=== PATIENT | female | born 1945 | race Caucasian/White ===

== ENCOUNTER 2018-07-24 12:49 | Emergency (ER) | payer OTHER, SELFPAY ==
[2018-07-24] VITALS (20 sets, daily range): BP systolic 96–162; BP diastolic 51–84; PULSE 79–107; RESP 12–28; O2SAT 90–100
--- NOTE | 2018-07-24 12:40 | DI.CT_ITS ---
SYMPTOM/DIAGNOSIS: STROKE NONCONTRAST HEAD CT: A noncontrast cranial CT was performed. There is high density material consistent with acute hemorrhage in the left parietal lobe with a rounded/ovoid collection measuring roughly 4.5 by 2.6 cm. in diameter. There is associated subarachnoid hemorrhage. There is associated intraventricular hemorrhage in the right lateral ventricle and in the third ventricle. There appears to be midline shift. This is difficult to quantify because of patient motion and positioning but may be up to 1 cm. Inferior portions of the brain are non visualized due to motion artifact. Note is also made of hemorrhage in the region of the basal ganglia on the left measuring up to about 2.5 cm. in diameter. CONCLUSION: Acute left intracranial hemorrhage as described above with intraparenchymal, intraventricular and subarachnoid components as described.
--- NOTE | 2018-07-24 13:25 | DI.RAD_ITS ---
SYMPTOM/DIAGNOSIS: POST INTUBATION PORTABLE AP CHEST at 1410 hours: An endotracheal tube is in position with the tip approximately 3.5 cm. above the mira. There is an NG tube, the tip of which overlies the gastric fundus. There may be left lower lobe intrapulmonary infiltrate, question aspiration. Appropriate follow up studies requested.
[2018-07-24] MEDS: niCARdipine 25 MG in Normal Saline 240 ML 50 MG IV (13:58)
--- NOTE | 2018-07-24 13:58 | W.ED.GENAD ---
Discharge Plan Disposition Patient Disposition: [facility] Condition: Poor Discharge Details Chief Complaint: CVA/TIA Clinical Impression: Intracranial hemorrhage, Aspiration pneumonia, Acute respiratory failure Primary Care Provider: None,None ED Provider: Lars Torres Discharge Data Discharge Date/Time-TO BE ENTERED AT DEPARTURE: 07/24/18 15:10 Medical Decision Making This is a 73-year-old female with no past medical history who takes daily vitamins, occasional supplements, and a daily aspirin. She presents with her and EMS for evaluation of stroke. 30-40 minutes prior to arrival states that they were at a at their muslim, he went to go find his whom he found in the lower basement, walking around and slightly confused. EMS was contacted, glucose was noted to be normal, and she was transported immediately to the ER. Initial assessment demonstrated notable right-sided deficits, expressive aphasia, confusion, but a very stable blood pressure at 130. Patient was immediately sent to CT after abbreviated assessment, massive bleed was identified while the skin was taking place. Upon return to the ED moments later the patient's mental status was a notable decline, and the decision was made to intubate for airway protection. It was at this time that the patient's blood pressure significantly shot up, and acute medical management was started as follows: Concern for stroke noted on initial exam, immediately sent to CT, there is a combination of an intraparenchymal, intraventricular, and subarachnoid hemorrhage and bleed noted with a 1 cm midline shift. Bleed is located on the right, shift to the left of 1cm. Patient's blood pressure managed immediately with nicardipine titrating for systolic less than 160, she was intubated for airway protection using 100 of rocuronium and 20 of etomidate, started on 2 g of Keppra, 250 cc bolus of hypertonic saline for concern of herniation secondary to acutely worsening mental status, and notable midline shift, propofol for sedation. Chest x-ray results show concern for aspiration pneumonia, Zosyn added. 3 peripheral lines were placed, an additional triple-lumen was placed in the left groin, an arterial line was placed in the right wrist. On direct mail clerk arrival it was brought to our attention that they are not able to transport with nicardipine or Keppra. Out of concern for the patient, and well-being for the patient, a nurse nitroglycerin nitrator operator batch volunteered to travel down with the paramedics to manage the drips and medications. This was discussed with Dr. Peres prior to transfer he agrees on the need, and has given permission and allowence for this to happen. Patient will be transferred to [facility] and be seen and assessed in the ED under Dr. Greene from neurosurgery and Dr. Batres from the ED. Of note there was a notable delay in the callback from [facility] as they did not receive her initial faxed facesheet after we made the first call contacting them requesting consult immediate transfer, however they did not call us to tell us that this was the case. When we had not heard back after 30 minutes, we contacted them again which point they told us that they had not received the face sheet, and we asked for immediate consultation with neurosurgery for immediate transfer in spite of the lack of images and the fourth patient information. Patient was immediately refaxed, and shortly thereafter we are put in contact with neurosurgery, agreed with the need for immediate transfer. No additional recommendations aside for our current medical management. Upon my evaluation, this patient had a high probability of imminent or life-threatening deterioration, which required my direct attention, intervention, and personal management. I have personally provided 45 minutes of critical care time exclusive of time spent on separately billable procedures. Time includes review of laboratory data, radiology results, discussion with consultants, and monitoring for potential decompensation. Interventions were performed as documented above. Procedure: Endotracheal Intubation Indication: Respiratory Distress A time-out was completed verifying correct patient, procedure, site, positioning, and special equipment if applicable. The patient was placed a 45 degree angle with the head of the bed elevated. Sedation was obtained using Etomidate 20mg and paralysis was obtained using Rocuronium 100mg. The patient was easily ventilated using an ambu bag. The MAC 3 BLADE was used and inserted into the oropharynx at which time there was a Grade 1 view of the vocal cords. A 7.5-ivorian endotracheal tube was inserted and visualized going through the vocal cords. The stylette was removed. Colorimetric change was visualized on the CO2 meter. Breath sounds were heard in both lung mckeon equally. The endotracheal tube was placed at 21 cm, measured at the teeth. A chest x-ray was ordered to assess for pneumothorax and verify endotrachealtube placement. No pneumothorax was seen and tube was in good position. The patient tolerated the procedure well and there were no complications. Procedure: Left femoral Central Venous Catheter Indication: Hemodynamic monitoring/Intravenous access PROCEDURE SUMMARY: A time-out was performed. The patient?s groin region was prepped and draped in sterile fashion using chlorhexidine scrub. Anesthesia was achieved with 1% lidocaine. The femoral vein was accessed under ultrasound guidance using a finder needle.Venous blood was withdrawn. A guidewire was advanced through the needle. A small incision was made with a 10 blade scalpel and the dilator was advanced over the guidewire until appropriate dilation was obtained. The dilator was removed and a triple lumen catheter was advanced over the guidewire and secured into place with 2 simple interrupted sutures. At time of procedure completion, all ports aspirated and flushed properly. ESTIMATED BLOOD LOSS: 5ml?s The patient tolerated the procedure well there were no complications. HPI General Date/Time Provider Initiated Documentation: 07/24/18 12:56. HPI Narrative: This is a 73-year-old female with no significant past medical history who takes multivitamins and a daily aspirin who presents today for evaluation of stroke. 30 minutes prior to arrival patient was found slightly confused wandering downstairs in the basement of her muslim. Family noticed significant right-sided facial droop, right-sided weakness confusion, expressive aphasia. EMS was immediately called and the patient was brought to the ER for further evaluation. Accu-Chek demonstrated normal glucose levels. Patient has no complaints secondary to her altered mental status. No history of intracranial bleed, recent falls or trauma, or other complaints. No other previous pertinent medical history. Patient is full code. General Stated Complaint: CVA/TIA JACQUELINE: 2 Review of Systems Review of Systems Unobtainable due to mental condition Exam Narrative Exam Narrative: 1.Const: Well-nourished, Well-developed, appearing stated age 2.Eyes: PERRL, no conjunctival injection. Patient unable to follow visual cues, she does not look in multiple directions, there does not appear to be any E esotropia or exotropia 3.ENT: Atraumatic external nose and ears. Moist MM. Neck: Symmetric, trachea midline, No thyromegaly. Face is asymmetric there is a component of bilateral facial droop, over there appears to be slightly more left facial droop, tongue deviates to the right 4.CVS: +S1/S2, No murmurs or gallops. Peripheral pulses 2+ and equal in all extremities. Brisk capillary refill in all extremities. 5.RESP: Unlabored respiratory effort. Clear to auscultation bilaterally. No wheezes rales or rhonchi 6.GI: Soft, Nontender/Nondistended, No hepatosplenomegaly. No guarding or rebound. 7.MSK: Normocephalic/Atraumatic, Extremities w/o deformity or ttp No cyanosis or clubbing, notable right-sided weakness, 0 strength of the upper and lower right extremity. 5 out of 5 strength in left extremity, normal designer architect strength on the left. No pronator drift, or other abnormality for the left. Insensate to the right upper and lower extremity. 8.Skin: Warm, Dry. No rashes or lesions. 9.Neuro: Patient demonstrates notable expressive aphasia, she is unable to follow all commands. She has notable weakness on the right upper and lower extremity with 0 strength. Notable neglect, as well as right side being insensate. Right tongue deviation, bilateral facial droop, slightly worse on the left. 10.Psych: (AAO) x0 Course Vital Signs Respiratory Rate 12 07/24/18 13:30 Pulse Oximetry 100 07/24/18 13:30 Temperature Source Skin 07/24/18 12:58 Pulse 100 H 07/24/18 13:48 Respiratory Rate 14 07/24/18 13:48 Blood Pressure 155/79 H 07/24/18 13:48 Pulse Oximetry 98 07/24/18 13:48 Respiratory End-tidal CO2 30 07/24/18 13:35 Oxygen Delivery Method Room Air 07/24/18 12:58 Oxygen Flow Rate 0 07/24/18 12:58 Fraction of Inspired Oxygen (FIO2) 60 07/24/18 13:35 Comment 07/24/18 13:48
--- NOTE | 2018-07-24 14:04 | ED.GENADUL_ITS ---
Discharge Plan Disposition Patient Disposition: [facility] Condition: Poor Discharge Details Chief Complaint: CVA/TIA Clinical Impression: Intracranial hemorrhage, Aspiration pneumonia, Acute respiratory failure Primary Care Provider: None,None ED Provider: Lars Torres Discharge Data Discharge Date/Time-TO BE ENTERED AT DEPARTURE: 07/24/18 15:10 Medical Decision Making This is a 73-year-old female with no past medical history who takes daily vitamins, occasional supplements, and a daily aspirin. She presents with her and EMS for evaluation of stroke. 30-40 minutes prior to arrival states that they were at a at their congregational, he went to go find his whom he found in the lower basement, walking around and slightly confused. EMS was contacted, glucose was noted to be normal, and she was transported immediately to the ER. Initial assessment demonstrated notable right-sided deficits, expressive aphasia, confusion, but a very stable blood pressure at 130. Patient was immediately sent to CT after abbreviated assessment, massive bleed was identified while the skin was taking place. Upon return to the ED moments later the patient's mental status was a notable de lizama, and the decision was made to intubate for airway protection. It was at this time that the patient's blood pressure significantly shot up, and acute medical management was started as follows: Concern for stroke noted on initial exam, immediately sent to CT, there is a combination of an intraparenchymal, intraventricular, and subarachnoid hemorrhage and bleed noted with a 1 cm midline shift. Bleed is located on the right, shift to the left of 1cm. Patient's blood pressure managed immediately with nicardipine titrating for systolic less than 160, she was intubated for airway protection using 100 of rocuronium and 20 of etomidate, started on 2 g of Keppra, 250 cc bolus of hypertonic saline for concern of herniation secondary to acutely worsening mental status, and notable midline shift, propofol for sedation. Chest x-ray results show concern for aspiration pneumonia, Zosyn added. 3 peripheral lines were placed, an additional triple-lumen was placed in the left groin, an arterial line was placed in the right wrist. On casing flusher arrival it was brought to our attention that they are not able to transport with nicardipine or Keppra. Out of concern for the patient, and well- being for the patient, a nurse tie in hand volunteered to travel down with the paramedics to manage the drips and medications. This was discussed with Dr. Peres prior to transfer he agrees on the need, and has given permission and allowence for this to happen. Patient will be transferred to [facility] and be seen and assessed in the ED under Dr. Greene from neurosurgery and Dr. Batres from the ED. Of note there was a notable delay in the callback from [facility] as they did not receive her initial faxed facesheet after we made the first call contacting them requesting consult immediate transfer, however they did not call us to tell us that this was the case. When we had not heard back after 30 minutes, we contacted them again which point they told us that they had not received the face sheet, and we asked for immediate consultation with neurosurgery for immediate transfer in spite of the lack of images and the fourth patient information. Patient was immediately refaxed, and shortly thereafter we are put in contact with neurosurgery, agreed with the need for immediate transfer. No additional recommendations aside for our current medical management. Upon my evaluation, this patient had a high probability of imminent or life- threatening deterioration, which required my direct attention, intervention, and personal management. I have personally provided 45 minutes of critical care time exclusive of time spent on separately billable procedures. Time includes review of laboratory data, radiology results, discussion with consultants, and monitoring for potential decompensation. Interventions were performed as documented above. Procedure: Endotracheal Intubation Indication: Respiratory Distress A time-out was completed verifying correct patient, procedure, site, positioni ng, and special equipment if applicable. The patient was placed a 45 degree angle with the head of the bed elevated. Sedation was obtained using Etomidate 20mg and paralysis was obtained using Rocuronium 100mg. The patient was easily ventilated using an ambu bag. The MAC 3 BLADE was used and inserted into the oropharynx at which time there was a Grade 1 view of the vocal cords. A 7.5- [place] endotracheal tube was inserted and visualized going through the vocal cords. The stylette was removed. Colorimetric change was visualized on the CO2 meter. Breath sounds were heard in both lung mckeon equally. The endotracheal tube was placed at 21 cm, measured at the teeth. A chest x-ray was ordered to assess for pneumothorax and verify endotrachealtube placement. No pneumothorax was seen and tube was in good position. The patient tolerated the procedure well and there were no complications. Procedure: Left femoral Central Venous Catheter Indication: Hemodynamic monitoring/Intravenous access PROCEDURE SUMMARY: A time-out was performed. The patient?s groin region was prepped and draped in sterile fashion using chlorhexidine scrub. Anesthesia was achieved with 1% lidocaine. The femoral vein was accessed under ultrasound guidance using a finder needle.Venous blood was withdrawn. A guidewire was advanced through the needle. A small incision was made with a 10 blade scalpel and the dilator was advanced over the guidewire until appropriate dilation was obtained. The dilator was removed and a triple lumen catheter was advanced over the guidewire and secured into place with 2 simple interrupted sutures. At time of procedure completion, all ports aspirated and flushed properly. ESTIMATED BLOOD LOSS: 5ml?s The patient tolerated the procedure well there were no complications. HPI General Date/Time Provider Initiated Documentation: 07/24/18 12:56 . HPI Narrative: This is a 73-year-old female with no significant past medical history who takes multivitamins and a daily aspirin who presents today for evaluation of stroke. 30 minutes prior to arrival patient was found slightly confused wandering downstairs in the basement of her congregational. Family noticed significant right-sided facial droop, right-sided weakness confusion, expressive aphasia. EMS was immediately called and the patient was brought to the ER for further evaluation. Accu-Chek demonstrated normal glucose levels. Patient has no complaints secondary to her altered mental status. No history of intracranial bleed, recent falls or trauma, or other complaints. No other previous pertinent medical history. Patient is full code. General Stated Complaint: CVA/TIA JACQUELINE: 2 Review of Systems Review of Systems Unobtainable due to mental condition Exam Narrative Exam Narrative: 1.Const: Well-nourished, Well-developed, appearing stated age 2.Eyes: PERRL, no conjunctival injection. Patient unable to follow visual cues, she does not look in multiple directions, there does not appear to be any E esotropia or exotropia 3.ENT: Atraumatic external nose and ears. Moist MM. Neck: Symmetric, trachea midline, No thyromegaly. Face is asymmetric there is a component of bilateral facial droop, over there appears to be slightly more left facial droop, tongue deviates to the right 4.CVS: +S1/S2, No murmurs or gallops. Peripheral pulses 2+ and equal in all extremities. Brisk capillary refill in all extremities. 5.RESP: Unlabored respiratory effort. Clear to auscultation bilaterally. No wheezes rales or rhonchi 6.GI: Soft, Nontender/Nondistended, No hepatosplenomegaly. No guarding or rebound. 7.MSK: Normocephalic/Atraumatic, Extremities w/o deformity or ttp No cyanosis or clubbing, notable right-sided weakness, 0 strength of the upper and lower right extremity. 5 out of 5 strength in left extremity, normal hydramatic mechanic strength on the left. No pronator drift, or other abnormality for the left. Insensate to the right upper and lower extremity. 8.Skin: Warm, Dry. No rashes or lesions. 9.Neuro: Patient demonstrates notable expressive aphasia, she is unable to follow all commands. She has notable weakness on the right upper and lower extremity with 0 strength. Notable neglect, as well as right side being insensate. Right tongue deviation, bilateral facial droop, slightly worse on the left. 10.Psych: (AAO) x0 Course Vital Signs Respiratory Rate 12 07/24/18 13:30 Pulse Oximetry 100 07/24/18 13:30 Temperature Source Skin 07/24/18 12:58 Pulse 100 H 07/24/18 13:48 Respiratory Rate 14 07/24/18 13:48 Blood Pressure 155/79 H 07/24/18 13:48 Pulse Oximetry 98 07/24/18 13:48 Respiratory End-tidal CO2 30 07/24/18 13:35 Oxygen Delivery Method Room Air 07/24/18 12:58 Oxygen Flow Rate 0 07/24/18 12:58 Fraction of Inspired Oxygen (FIO2) 60 07/24/18 13:35 Comment 07/24/18 13:48
[2018-07-24 14:16] LABS: Abs Immature Grans 0.01 k/cumm (0.0-0.09); Absolute Basophil Count 0.02 k/cumm (0.0-0.2); Absolute Eosinophil Count 0.09 k/cumm (0.0-0.7); Absolute Lymphocyte Count 0.78 k/cumm (1.2-3.4); Absolute Monocyte Count 0.42 k/cumm (0.11-0.7); Absolute Neutrophil Count 3.62 k/cumm (1.2-6.7); Basophils % 0.4; Eosinophils % 1.8; Immature Grans % 0.2; Lymphocytes % 15.8; Mean Corp. HGB Concentration 32.7 g/dL (32.0-36.0); Mean Corpuscular Hemoglobin 30.9 pg (27.0-33.0); Mean Corpuscular Volume 94.4 fL (80-95); Mean Platelet Volume 10.9 fL (8.0-11.0); Monocytes % 8.5; Neutrophils % 73.3; RBC 3.76 m/cumm (4.00-5.20); White Blood Cell Count 4.94 k/cumm (4.4-10.8)
[2018-07-24 14:19] LABS: HCT 35.5 % (36.0-46.0); HGB 11.6 g/dL (12.0-15.5)
[2018-07-24 14:20] LABS: Platelet Count 152 x1000/uL (130-400)
[2018-07-24] MEDS: PROPOFOL 1,000 MG/100 ML BTL 8 MG (14:24)
[2018-07-24 14:35] LABS: PTT Activated 22.7 sec (21.0-31.4); Prothrombin Time 10.4 sec (9.3-11.0)
[2018-07-24 14:45] LABS: ALT 21 U/L (12-78); AST 26 U/L (15-37); Albumin 3.2 g/dL (3.4-5.0); Alkaline Phosphatase 62 U/L (46-116); Anion Gap 12.2 mmol/L (3-11); BUN 13 mg/dL (7-18); Bilirubin, Total 0.7 mg/dL (0.2-1.0); CO2 23.8 mmol/L (21.0-32.0); CREATININE 0.63 mg/dL (0.55-1.02); Chloride 111 mmol/L (98-107); Glucose 123 mg/dL (70-100); Potassium 3.3 mmol/L (3.5-5.1); Sodium 147 mmol/L (136-145); Total Protein 6.7 g/dL (6.4-8.2)
[2018-07-24 14:46] LABS: Troponin I < 0.02 ng/mL (0.00-0.06)
[2018-07-24] MEDS: levETIRAcetam 1,000 MG in Normal Saline 100 ML 400 MG IVPB (14:47)
[2018-07-24] MEDS: PIPERACILLIN/TAZO 4.5 GM in Normal Saline 100 ML IVPB (14:50)
[2018-07-24 15:10] LABS: Bilirubin Negative (Negative); Blood Moderate (Negative); Clarity Clear; Glucose Negative (Negative); Ketones Negative (Negative); Leukocyte Esterase Negative (Negative); Nitrite Negative (Negative); Urobilinogen 0.2 EU/dL (Up TO 0.2); pH 7.5 (5-8)
[2018-07-24 15:19] LABS: Bacteria Rare HPF (Negative); C & S Indicated? No; Casts Negative LPF (Negative); Crystals Negative HPF (Negative); Epithelial Cells Few HPF (Negative); Mucus Negative (Negative); Other Cells Few Renal (Negative); RBC >50 (0-2); WBC 0-2 HPF (0-5)
[2018-07-24] MEDS: Normal Saline-STERILE FIELD 0.9% 10 ML SYR (20:14)
--- NOTE | 2018-07-24 21:57 | NUR.NOTE ---
rocuronium 100mg IVP at 1322 Nursing Note:
--- NOTE | 2018-07-24 21:59 | NUR.NOTE ---
hypertonic solution 3% given at 1347 left forearm over 1 hour Nursing Note:
== END 2018-07-24 15:10 | disposition short-term general hospital (02) ==
LOC: ER 14:20
PROVIDERS: Emergency Provider Student in an Organized Health Care Education/Training Program
DX: I61.6 Nontraumatic intracerebral hemorrhage, multiple localized (principal); J69.0 Pneumonitis due to inhalation of food and vomit; I69.292 Facial weakness following other nontraumatic intracranial hemorrhage; I69.220 Aphasia following other nontraumatic intracranial hemorrhage; J96.00 Acute respiratory failure, unspecified whether with hypoxia or hypercapnia; I69.251 Hemiplegia and hemiparesis following other nontraumatic intracranial hemorrhage affecting right dominant side; R29.810 Facial weakness
CPT/HCPCS: 31500; 36415; 36556; 51702; 71045; 80053; 86850; 86900; 86901; 93005; 96361; 96365; 96375; 99291; 70450; 81003; 81015; 84484; 85025; 85610; 85730; 93010; J1953; J2543; J3490